=== PATIENT | female | born 2005 | race African-American/Black ===

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

== ENCOUNTER 2023-04-04 16:16 | Emergency (ER) | payer OTHER ==
[2023-04-04 18:34] LABS: SARS-CoV-2 NAA Rapid Test Not Detected (NotDetected)
== END 2023-04-04 17:32 | disposition home or self-care (01) ==
LOC: ERS 16:16
DX: U07.1 COVID-19 (principal)
CPT/HCPCS: 99284

== ENCOUNTER 2024-02-03 16:40 | Emergency (ER) | payer SELFPAY ==
[2024-02-03] MEDS ORDERED: Ibuprofen 200 MG TAB ONE (18:10)
== END 2024-02-03 18:20 | disposition home or self-care (01) ==
LOC: ERS 16:40
DX: M79.641 Pain in right hand (principal)